=== PATIENT | male | born 1970 | race American Indian/Alaskan Native ===

== ENCOUNTER 2019-01-15 17:22 | Emergency (ER) | payer MEDICAID, OTHER ==
[2019-01-15 17:42] VITALS: TEMP 98.5
[2019-01-15] MEDS: Sodium Chloride 0.9% 1,000 ML IV ONE (19:47)
[2019-01-15 19:52] LABS: BASO # 0.1 K/uL (0.0-0.2); BASO % 1.2 % (0.0-2.0); EOS % 0.8 % (0.0-4.0); HEMOGLOBIN 11.1 g/dL (12.0-18.0); LYMPH # 2.2 K/uL (1.0-4.3); LYMPH % 38.7 % (20.0-40.0); MEAN CELL VOLUME 91.6 fl (80.0-94.0); MEAN CORPUSCULAR HEMOGLOBIN 30.2 pg (27.0-31.0); MEAN PLATELET VOLUME 7.6 fl (7.2-11.7); MONO # 0.6 K/uL (0.0-0.8); MONO % 11.1 % (0.0-10.0); NEUT # 2.7 K/uL (1.8-7.0); NEUT % 48.2 % (50.0-75.0); NRBC % 0.1 % (0.0-0.0); RBC 3.67 Mil/uL (4.40-5.90); RED CELL DISTRIBUTION WIDTH 15.2 % (11.5-14.5); WHITE BLOOD COUNT 5.6 K/uL (4.8-10.8)
[2019-01-15 20:05] LABS: ALB/GLOB RATIO 1.3 (1.0-2.1); ALBUMIN 4.1 g/dL (3.5-5.0); ALT/SGPT 32 U/L (21-72); AST/SGOT 38 U/L (17-59); BLOOD UREA NITROGEN 16 mg/dl (9-20); CALCIUM 9.4 mg/dL (8.4-10.2); GFR NON-AFRICAN AMERICAN > 60
--- NOTE | 2019-01-15 20:07 | ED PDOC ---
HPI: General Adult Time Seen by Provider: 01/15/19 18:40 Chief Complaint (Nursing): Headache Chief Complaint (Provider): high bloof pressure History Per: Patient History/Exam Limitations: no limitations Onset/Duration Of Symptoms: Hrs (1x) Current Symptoms Are (Timing): Gone Now Severity: Moderate Additional Complaint(s): 48 year old male with a reported past medical history of hypertension (but does not take medications for it and has not been diagnosed with it by a doctor) presents to the ED with complaints of a left sided "head spasm" that occurred 1x hour prior to arrival. Patent states that 1x hour ago, he had 2x twitches on the left side of his head, and was concerned that it was due to an elevated blood pressure. Patient states that 1x week ago he was incarcerated, and had a blood pressure reading of 190/120, was given blood pressure medications there, but has not taken any blood pressure medications since. Patient denies having any symptoms currently. Patient admits to drinking 1/2 pint of alcohol today. Otherwise: (-) headaches, (-) visual changes, (-) chest pain, (-) difficulty breathing, (-) lightheadedness, (-) dizziness, (-) fevers, (-) abdominal pain, (-) nausea, (-) vomiting. PMD: none Past Medical History Reviewed: Historical Data, Nursing Documentation, Vital Signs Vital Signs: Last Vital Signs Temp 98.5 F 01/15/19 17:37 Pulse 96 H 01/15/19 17:37 Resp 18 01/15/19 17:37 BP 124/73 01/15/19 17:37 Pulse Ox 97 01/15/19 17:37 ALBERTA Report Viewed: Yes - Medical History PMH: Depression, HTN (no medications) Denies: Diabetes, Hepatitis, HIV, Seizures, Sexually Transmitted Disease - Family History Family History: States: No Known Family Hx - Social History Current smoker - smoking cessation education provided: Yes Alcohol: Other (3x days per week. today: 1/2 pint) Drugs: Denies - Home Medications Home Medications: Ambulatory Orders Medication Instructions Recorded Naproxen 500 mg PO BID PRN #20 tab 01/15/19 - Allergies Allergies/Adverse Reactions: Allergies Allergy/AdvReac Type Severity Reaction Status Date / Time No Known Allergies Allergy Verified 07/23/14 18:05 Review of Systems ROS Statement: Except As Marked, All Systems Reviewed And Found Negative Constitutional: Negative for: Fever Eyes: Negative for: Vision Change Cardiovascular: Negative for: Chest Pain, Light Headedness Respiratory: Negative for: Shortness of Breath Gastrointestinal: Negative for: Nausea, Vomiting, Abdominal Pain Neurological: Positive for: Other ("head spasm" : 2x twitches to left side head earlier today). Negative for: Headache, Dizziness Physical Exam - Reviewed Nursing Documentation Reviewed: Yes Vital Signs Reviewed: Yes - Physical Exam Comments: GENERAL APPEARANCE: Patient is awake, alert, oriented x 3, well appearing, in no acute distress. (-) appears intoxicated. SKIN: Warm, dry; (-) cyanosis; (-) rash. HEAD: bald, atraumatic. (+) pinpoint tenderness to left side, above left ear. (- ) scalp swelling, (-)deformity (-) temporal artery tenderness (-)palpable or visualized cords EYES: EOMI, PERRLA. (-) conjunctival pallor, (-) scleral icterus. ENMT: (-) hemotympanum. (-) sinus tenderness; mucous membranes are moist. NECK: (-) tenderness, (-) stiffness, (-) meningismus, (-) lymphadenopathy. CHEST AND RESPIRATORY: (-) rales, (-) rhonchi, (-) wheezes; breath sounds equal bilaterally. HEART AND CARDIOVASCULAR: (-) irregularity; (-) murmur, (-) gallop. ABDOMEN AND GI: Soft; (-) tenderness. EXTREMITIES: (-) deformity. NEURO AND PSYCH: Mental status as above. normal steady gait. Patient speaking in full sentences. Cranial nerves 2-12: in tact. Pupils equal and reactive; EOMI; (-) facial asymmetry; tongue and uvula midline. Strength and DTRs symmet franck. Babinski normal bilaterally. - Laboratory Results Result Diagrams: 01/15/19 19:48 01/15/19 19:48 - ECG O2 Sat by Pulse Oximetry: 97 (RA) Pulse Ox Interpretation: Normal Medical Decision Making Medical Decision Makin:40 Clinical impression: 48 year old male with a "head spasm" Initial plan: * CT head w/o contrast * alcohol serum * CMP * CBC with differential * ESR * accucheck * IV NS 1,000 ml IV 1,000 mls/hr Pt with normal BP 124/73, low concern for temporal arteritis, does not appear intoxicated, will get labs and images to rule out, likely muscle spasm visual acuity reported by RN 20/50 in both eyes, pt reports he is supposed to wear glasses, but does not have them and otherwise reports no new changes in his vision 20:54 re eval pt reports no symptoms, has not had "spasms" again results reviewed, shows pt slightly anemia, hgb 11.1, otherwise asymptomatic, ESR 24, slightly elevated but non specific, etoh <10 per [place] rad report no acute interracial abnormality, chronic sinusitis noted. 21:[address] Gomez, who agrees with assessment and evaluation, pt does not have temporal artery tenderness, no palpable or visualized cords, no acute visual changes, esr slightly elevated, pt likely with muscle spasm, stable for dc and outpt f/u 21:10 Pt neurologically intact, VSS, afebrile, asymptomatic, no temporal artery tenderness or cords, no visual changes, likely muscle spasm Discussed all results, diagnosis, treatment, strict return precautions and importance of f/u with pt who is understanding, in agreement and stable for dc Scribe Attestation: Documented by Minerva Cassidy, acting as a scribe for Pio Sparks PA-C. Provider Scribe Attestation: All medical record entries made by the Scribe were at my direction and personally dictated by me. I have reviewed the chart and agree that the record accurately reflects my personal performance of the history, physical exam, medical decision making, and the department course for this patient. I have also personally directed, reviewed, and agree with the discharge instructions and disposition. Disposition - Clinical Impression Clinical Impression: Headache, Muscle spasm - Patient ED Disposition Is Patient to be Admitted: No Counseled Patient/Family Regarding: Studies Performed, Diagnosis, Need For Followup, Rx Given - Disposition Referrals: [facility] [facility] [place] [Outside] [facility] [Outside] Disposition: Routine/Home Disposition Time: 21:10 Condition: STABLE Additional Instructions: Return to ED for new or worsening symptoms, fever >100.4, changes in vision, severe headache, changes in skin color, swelling, chest pain. Follow up with a primary care doctor or the clinic in 3-5 days. Take medications as prescribed. Prescriptions: Naproxen 500 mg PO BID PRN #20 tab PRN Reason: Pain, Moderate (4-7) Instructions: Headache, Adult, Muscle Spasms (DC) Forms: [employer] ([employer]) Print Language: LIBERIAN - POA Present On Arrival: None Results - Lab Results Lab Results: 01/15/19 01/15/19 19:48 19:48 WBC 5.6 RBC 3.67 L Hgb 11.1 L Hct 33.6 L MCV 91.6 MCH 30.2 MCHC 33.0 RDW 15.2 H Plt Count 347 MPV 7.6 Neut % (Auto) 48.2 L Lymph % (Auto) 38.7 [place] % (Auto) 11.1 H Eos % (Auto) 0.8 Baso % (Auto) 1.2 Neut # (Auto) 2.7 Lymph # (Auto) 2.2 [place] # (Auto) 0.6 Eos # (Auto) 0.0 Baso # (Auto) 0.1 ESR 24 H Sodium 140 Potassium 4.2 Chloride 107 Carbon Dioxide 27 Anion Gap 10 BUN 16 Creatinine 1.1 Est GFR ( Amer) > 60 Est GFR (Non-Af Amer) > 60 Random Glucose 94 Calcium 9.4 Total Bilirubin 0.2 AST 38 ALT 32 Alkaline Phosphatase 66 Total Protein 7.3 Albumin 4.1 Globulin 3.1 Albumin/Globulin Ratio 1.3 Alcohol, Quantitative < 10
[2019-01-15 21:32] VITALS: BP 134/76; PULSE 88; RESP 16
[2019-01-15 21:51] VITALS: O2SAT 97
--- NOTE | 2019-01-16 11:54 | CT ---
Date of service: 01/15/2019 PROCEDURE: CT HEAD WITHOUT CONTRAST. HISTORY: left side head pain/pulsing COMPARISON: None available. TECHNIQUE: Axial computed tomography images were obtained through the head/brain without intravenous contrast. Supplemental Coronal and Sagittal projections created and reviewed. Radiation dose: Total exam DLP = 848.35 mGy-cm. This CT exam was performed using one or more of the following dose reduction techniques: Automated exposure control, adjustment of the mA and/or kV according to patient size, and/or use of iterative reconstruction technique. FINDINGS: HEMORRHAGE: No intracranial hemorrhage. BRAIN: No mass effect or edema. No atrophy or chronic microvascular ischemic changes. VENTRICLES: Unremarkable. No hydrocephalus. CALVARIUM: Unremarkable. PARANASAL SINUSES: Unremarkable as visualized. No significant inflammatory changes. MASTOID AIR CELLS: Unremarkable as visualized. No inflammatory changes. OTHER FINDINGS: None. IMPRESSION: No acute intracranial abnormalities. No significant findings to account for the clinical presentation. Concordant results (preliminary interpretation) provided by [email or web address]. Procedure Completed: 20:39. Preliminary Report: Interpreted and electronically signed: 20:51. Final Interpretation: 11:50. January 16, 2019
== END 2019-01-15 22:14 | disposition home or self-care (01) ==
LOC: H.ER 17:22
DX: R51 Headache (principal); I10 Essential (primary) hypertension; D64.9 Anemia, unspecified
CPT/HCPCS: 70450; 80053; 80320; 85025; 85651; 96360; 99284; J7040